=== PATIENT | female | born 2000 | race Caucasian/White ===

== ENCOUNTER 2023-11-17 09:01 | Emergency (ER) | payer MEDICAID, SELFPAY ==
[2023-11-17 09:15] VITALS: BP 127/70; PULSE 101; RESP 20; TEMP 36.6; O2SAT 97
--- NOTE | 2023-11-17 09:32 | ED.ABDPAIN ---
HPI - Abdominal Pain General Chief Complaint: Abdominal Pain Stated Complaint: diarrhea/fever/cough/aches Time Seen by Provider: 11/17/23 09:23 Source: patient and RN notes reviewed Mode of arrival: ambulatory Limitations: no limitations History of Present Illness HPI narrative: 23 y/o female presented for c/o generalized abdominal pain, nausea, vomiting and diarrhea intermittently for about one month. Endorses occasional subjective fever and has had about 2 or 3 episodes of blood in the stool since onset. States she had about 12 liquid BMs since 0 today; took a dramamine and 'stool hardener' medication today. Has not eaten today. Rating abdominal pain 7/10. Endorses symptoms worsen after eating. Denies abdominal surgeries. Pt also reports she has had a heavy menses for 2 months continuously. Endorses multiple pads daily with menstrual cramping. Pt has started on the nexplanon for this reason, and had been doing well until the last couple of months. Scheduled with her Obgyn in 6 days. Related Data Home Medications Medication Instructions Recorded Confirmed etonogestrel 68 mg subdermal 1 implant subdermal ONCE 11/17/23 11/17/23 implant (Nexplanon) Allergies Allergy/AdvReac Type Severity Reaction Status Date / Time Penicillins Allergy Intermediate Hives Verified 11/17/23 09:56 Review of Systems Review of Systems: CONSTITUTIONAL: Denies body aches, reports fever, chills ENT: Denies rhinorrhea, congestion CARDIOVASCULAR: Denies chest pain, palpitations, or edema. RESPIRATORY: Denies cough or dyspnea. GASTROINTESTINAL: Endorses abdominal pain, nausea, vomiting, diarrhea, hematochezia, denies hematemesis GENITOURINARY: reports heavy persistent menses Denies dysuria, hematuria, or CVA tenderness. SKIN: Denies rash, itching, or wounds. MUSCULOSKELETAL: Denies back pain, joint pain, or myalgia. NEUROLOGIC: Denies headache All systems reviewed & are unremarkable except as noted in HPI and below PMFSH Comments At time of signature, I have reviewed and agree with nursing past medical, surgical, social and family history unless otherwise noted. Please see nursing chart for further information. There is no relevant family history pertinent to the presenting complaint Exam Narrative: GENERAL: mildly ill-appearing, in no acute distress. Sweating. EYES: EOMI. Conjunctivae normal. ENT: Mucous membranes pink and moist. CHEST: No respiratory distress. Clear to auscultation. HEART: Regular rate and rhythm. Normal peripheral pulses. ABDOMEN: abd soft, nondistended, normal active bowel sounds. Tender abdomen throughout; RUQ significant tenderness; No guarding, rebound tenderness, asymmetry, No pulsatile masses. No periumbilical tenderness. No Supra public tenderness or distension. SKIN: Warm, dry, Capillary refill normal. Normal skin turgor. NEURO: Alert and oriented x3. PSYCH: Normal affect. Course Course Emergency Course: Patient is aware of diagnosis, understands and agrees to treatment plan. Anticipatory guidance given. Patient agrees to follow-up as directed and is aware of reasons to seek care at the emergency department. Portions of this record may have been created with voice recognition software Level of Care: Express Care Visit Vital Signs Vital signs: Vital Signs Temperature 97.8 F 11/17/23 09:15 Pulse Rate 101 H 11/17/23 09:15 Respiratory Rate 20 11/17/23 09:15 Blood Pressure 127/70 11/17/23 09:15 Pulse Oximetry 97 11/17/23 09:15 Oxygen Delivery Room Air 11/17/23 09:15 Temperature 97.8 F 11/17/23 09:15 Pulse Rate 101 H 11/17/23 09:15 Respiratory Rate 20 11/17/23 09:15 Blood Pressure 127/70 11/17/23 09:15 Pulse Oximetry 97 11/17/23 09:15 Oxygen Delivery Room Air 11/17/23 09:15 Transfer Transfered to: [facility]) Transportation: Other (private vehicle) Transfer rationale: Pt is agreeable to transfer. Requests transfer to [facility]
== END 2023-11-17 09:45 | disposition short-term general hospital (02) ==
PROVIDERS: Emergency Provider Nurse Practitioner Family
DX: R10.31 Right lower quadrant pain (principal); R10.9 Unspecified abdominal pain
CPT/HCPCS: 99212; G0463